=== PATIENT | female | born 1980 | race Caucasian/White ===

== ENCOUNTER 2019-09-18 15:24 | Emergency (ER) | payer OTHER ==
[~2019-09-18] VITALS: Ht 172.7 cm; Wt 79.4 kg
[2019-09-18] MEDS ORDERED: PREDNISONE 20 M20 M1 PO (16:30)
[2019-09-18 16:59] VITALS: BP 129/86
== END 2019-09-18 17:04 | disposition home or self-care (01) ==
LOC: ER 15:24
DX: J45.901 Unspecified asthma with (acute) exacerbation (principal); Z88.5 Allergy status to narcotic agent; Z88.8 Allergy status to other drugs, medicaments and biological substances

== ENCOUNTER 2019-10-03 19:29 | Emergency (ER) | payer OTHER ==
[~2019-10-03] VITALS: Ht 170.2 cm; Wt 80.3 kg
[~2019-10-03 19:29] MED LIST: PREDNISONE 20 M20 M1 PO
[2019-10-03] MEDS ORDERED: NORCO 5-325 TA1 EAC1 PO (20:55)
[2019-10-03 21:41] VITALS: BP 136/90
== END 2019-10-03 21:41 | disposition home or self-care (01) ==
LOC: ER 19:29
DX: S50.02XA Contusion of left elbow, initial encounter (principal); S70.01XA Contusion of right hip, initial encounter; J45.909 Unspecified asthma, uncomplicated; Z88.5 Allergy status to narcotic agent; Z88.1 Allergy status to other antibiotic agents; W00.0XXA Fall on same level due to ice and snow, initial encounter; Y92.89 Other specified places as the place of occurrence of the external cause; Y93.89 Activity, other specified; Y99.8 Other external cause status

== ENCOUNTER → 2019-10-05 | Outpatient (CLI) | payer OTHER ==
[~2019-10-05] MED LIST changes: +NORCO 5-325 TA1 EAC1 PO
== END ==
LOC: RAD 15:40
DX: M25.522 Pain in left elbow (principal)

== ENCOUNTER → 2019-10-16 | Outpatient (CLI) | payer OTHER | LOC: MRI 13:26 | DX: S49.92XS Unspecified injury of left shoulder and upper arm, sequela (principal); M25.522 Pain in left elbow; G56.22 Lesion of ulnar nerve, left upper limb; X58.XXXS Exposure to other specified factors, sequela ==

== ENCOUNTER 2020-05-08 11:36 | Inpatient (IN) | payer OTHER ==
[~2020-05-08] VITALS: Ht 170.2 cm; Wt 73.9 kg
[2020-05-08 11:42] VITALS: BP 133/87
[2020-05-08 11:50] LABS: URINE BILIRUBIN NEGATIVE (Negative); URINE BLOOD TRACE (Negative); URINE CLARITY CLEAR; URINE COLOR YELLOW; URINE GLUCOSE-RANDOM* NEGATIVE (Negative); URINE KETONES NEGATIVE (Negative); URINE NITRITE-REFLEX NEGATIVE (Negative); URINE PROTEIN (DIPSTICK) NEGATIVE (Negative); URINE SPECIFIC GRAVITY <= 1.005 (1.005-1.035); URINE UROBILINOGEN 0.2 E.U./dl (0.2-1.0)
[2020-05-08 11:54] LABS: URINE LEUKOCYTES-REFLEX 1+ (Negative)
[2020-05-08 12:08] LABS: BACTERIA-REFLEX 1-9 Few /HPF (None Seen); CASTS None Seen /LPF (None Seen); CRYSTALS None Seen /LPF (None Seen); SQUAMOUS 4-10 Moderate /LPF (0-3); URINE RBC None Seen /HPF (0-2); URINE WBC-REFLEX 0-5 Rare /HPF (0-5)
[2020-05-08 12:40] LABS: ABSOLUTE NEUTROPHILS 2.5 thou/uL (1.4-8.2); BASOPHILS 1.1 % (0.0-2.0); EOSINOPHILS 1.1 % (0.0-3.0); HEMATOCRIT 41.7 % (37.0-47.0); HEMOGLOBIN 13.6 gm/dL (12.0-15.0); MCH 29.1 pg (26.0-34.0); MCHC 32.7 g/dL (28.0-37.0); MCV 88.9 fL (80.0-100.0); MONOCYTES 8.5 % (1.0-8.0); PLATELET COUNT 209 thou/uL (150-400); POLYS 58.3 % (36.0-66.0); RBC 4.69 mil/uL (4.20-5.00); WBC 4.3 thou/uL (4.0-11.0)
[2020-05-08] MEDS ORDERED: PROTONIX40 M2 PO (12:46)
[2020-05-08] MEDS ORDERED: ALLEGRA ALLERG180 MG PO (12:46)
[2020-05-08] MEDS ORDERED: SINGULAIR 10 MG10 MG PO (12:47)
[2020-05-08] MEDS ORDERED: ASMANEX220 MC2 INH (12:48)
[2020-05-08] MEDS ORDERED: DULERA 200 MCG/13 GM INH (12:48)
[2020-05-08 12:49] LABS: CALCIUM 8.9 mg/dL (8.5-10.1); POTASSIUM 3.6 mmol/L (3.5-5.1)
[2020-05-08] MEDS ORDERED: AUVI-Q0.1 MG/0.1 INJECTION (12:50)
[2020-05-08] MEDS ORDERED: XOPENEX HFA15 GM INH (12:51)
[2020-05-08 12:55] LABS: ALBUMIN 3.7 g/dL (3.4-5.0); TOTAL BILIRUBIN 0.2 mg/dL (0.2-1.0); TOTAL PROTEIN 8.3 g/dL (6.4-8.2)
[2020-05-08] MEDS ORDERED: FLEXERIL PO (19:47)
[2020-05-08] MEDS ORDERED: OCTAGAM 10% VIA20 ML IV (19:48)
[2020-05-08] MEDS ORDERED: MELATONIN1 M2 PO (19:48)
[2020-05-08] MEDS ORDERED: SPIRONOLACTONE100 M1 PO (19:48)
[2020-05-08] MEDS ORDERED: PHENERGAN 25 MG25 M1 PO (19:49)
[2020-05-08] MEDS ORDERED: BUTALB-APAP-CA1 EACH PO (19:49)
[2020-05-08] MEDS ORDERED: ZOMIG5 MG PO (19:50)
[2020-05-08] MEDS ORDERED: AAA-MED REC COMPLETE (19:50)
[2020-05-08] MEDS ORDERED: ZOFRAN4 MG PO (19:50)
[2020-05-08 20:47] VITALS: BP 134/82
[2020-05-08 21:23] VITALS: BP 134/82
[2020-05-08 21:44] VITALS: BP 138/69
[2020-05-08 23:58] VITALS: BP 107/63
[2020-05-09 05:09] VITALS: BP 114/71
--- NOTE | 2020-05-09 07:28 | NUR ---
ADMITTED FROM ER UNDER 'S CARE. PT WAS SEEN BY IN ER. VSS. NO S/S ACUTE DISTRESS NOTED OR REPORTED AT THIS TIME. WILL CONT TO MONITOR FOR ANY CHANGES IN CONDITION.
[2020-05-09 08:03] VITALS: BP 120/82
[2020-05-09 14:48] VITALS: BP 118/77
--- NOTE | 2020-05-09 15:02 | NUR ---
PT ADMITTED RELATED TO ABD PAIN. CM REVIEWED CHART AND SPOKE WITH CARE TEAM. CM MET WITH PT AT BEDSIDE THIS DAY. PT IS A&O X4. CM ROLE INTRODUCED. PT INDICATED SHE LIVES IN A HOUSE WITH HER FAMILY WITH 3 STEPS TO ENTER AND NO STEPS SHE NEEDS TO USE INSIDE. 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 PT INDICATED PCP IS DR. NICHOLAS. PT INDICATED NO HH OR OP HX. PT INDICATED SHE PLANS TO RETURN HOME ONCE MEDICALLY STABLE. PT TO HAVE EGD IN THE AM. CM TO FOLLOW INDICATED WITH DC PLANNING.
--- NOTE | 2020-05-09 18:12 | NUR ---
RECEIVED PT'S CARE AROUND 0730; PT. ON BED; ALERT; DURING AM ASSESSMENT AOX4; C/O PAIN OVER ABDOMEN; 11/27; ST. NOT NEED PRN PAIN MEDICATION; AM MEDICATIONS GIVEN; EDUCATED ABOUT FALL PREVENTIONS; ST. UNDERSTANDING; NO C/O NAUSEA OR VOMITING AFTER BREAKFAST; REQUESTED PRN ANTI-NAUSEA MEDICATION & PAIN MEDICATION AFTER BREAKFAST; MEDICATION GIVEN; RE-ASSESSMENT PT. RESTING WITH EYES CLOSED; EDUCATED ABOUT NPO AT MIDNIGHT; ST. UNDERSTANDING; ASSESSMENT CHARGED; FOLLOWING POC; WILL PASS ON REPORT;
[2020-05-09 19:18] VITALS: BP 124/75
--- NOTE | 2020-05-10 02:52 | NUR ---
ASSUMED CARE OF PT AT 1900. PT IS A/O X4. PT DENIES ANY PAIN OR DISCOMFORT TO ABDOMEN. DISCONTINUED IV AND REPLACED IT. NPO SINCE MIDNIGHT AWAITING EGD AND ULTRASOUND IN THE AM. PT IS NOW IN HER BED AND APPEARS TO BE SLEEPING. CALL LIGHT IS WITHIN REACH. WILL CONTINUE TO MONITOR.
[2020-05-10 08:00] VITALS: BP 131/74
--- NOTE | 2020-05-10 12:23 | NUR ---
Assumed pt car at 7am.Pt in bed resting and c/o abdominal pain and nausea. Morphine and compazine ivp given as ordered with relief.Received call from gi lab and updates given.Dr Jeong here,order noted.Pt left for egd per cart at 1115.Will continue to monitor.
--- NOTE | 2020-05-10 16:38 | NUR ---
PT HAD EGD THIS DAY. PT IS TO HAVE NEW IV PACED THEN CTA. NO DC ANTICIPATED THIS DAY. PT WILL LIKELY BE ABLE TO DC HOME WITH NO NEEDS ONCE MEDICALLY STABLE. CM TO FOLLOW SHOULD ANY DC NEEDS ARISE.
[2020-05-10 17:00] VITALS: BP 147/84
[2020-05-10 17:22] LABS: CALCIUM 8.3 mg/dL (8.5-10.1); CREATININE 0.9 mg/dL (0.6-1.0); POTASSIUM 3.1 mmol/L (3.5-5.1)
[2020-05-10 19:24] VITALS: BP 145/76
[2020-05-11 03:17] VITALS: BP 119/74
--- NOTE | 2020-05-11 04:01 | NUR ---
PATIENT AOX4 MAKES NEEDS KNOWN. PATIENT HAD EMESIS X 2 THIS SHIFT. PAIN CONTROLLED THIS SHIFT.FALL PREACUTION IN PLACE. PATIENT IN BED ASLEEP AT THIS TIME BREATHING REGULAR AND UNLABOURED.
[2020-05-11 08:01] VITALS: BP 128/80
[2020-05-11 13:10] VITALS: BP 133/75
[2020-05-11] MEDS ORDERED: LEVAQUIN 750 M750 MG PO (15:36)
--- NOTE | 2020-05-11 16:30 | NUR ---
PT ASSESSED AT START OF SHIFT. NEW LLL PNEUMONIA AND STARTED ON LEVAQUIN. ABD PAIN AND NAUSEA BETTER AND DIET ADVANCED. INCREASING SLOWLY. TO F/U W/ GI IN 2 WEEKS. DISCHARGING AT THIS TIME W/ ALL BELONGINGS.
[2020-05-11 16:45] VITALS: BP 133/75
--- NOTE | 2020-05-13 18:06 | PATH ---
[facility] [place] [address] PATHOLOGY RPT PROCEDURE Name: SIMEONCIERRA Room #: 459-P DIS IN M.R.#: [id number] Admission: 05/08/20 Date of : 78 Discharge: 05/11/20 Report #: [id number] Path Case #: [id number] [facility] Accession Number: [id number] . 01 Material submitted: . 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 01 Clinical history: . None provided. . 02 Diagnosis: Small bowel mucosa, endoscopic biopsy: - No significant diagnostic abnormalities identified. - Negative for parasitic organisms or viral inclusions. - Negative for villous blunting or increase in intraepithelial lymphocytes. (IUV:krysta; 05/13/2020) QMS 05/13/2020 1722 Local . 02 Electronically signed: . Bel Julio MD, Pathologist NPI- [id number] . 01 Gross description: . Received in formalin labeled "Simeon Cierra, BX of small bowel history of CVID r/o IBD and celiac" is a 1.5 x 0.5 x 0.1 cm aggregate of blackburn-brown soft tissue fragments. The specimen is submitted entirely in A1. ([facility]; 05/12/2020) [facility] 05/12/2020 1248 Local . 02 Pathologist provided ICD-10: Z03.89 . 02 CPT . 494739 Specimen Comment: A courtesy copy of this report has been sent to [phone] Specimen Comment: [phone] Specimen Comment: Report sent to / DR HOU Performed at: [address], [place] [id number] MD eLs Sheehan MD Phone: [phone] Performed at: [address] [id number] MD Bel Julio MD Phone: [phone]
== END 2020-05-11 17:15 | disposition home or self-care (01) | DRG 871 ==
LOC: ER 11:36 → EROBS 16:48 → 4W 16:48
PROVIDERS: Physician Assistant; ADMIT Internal Medicine; ATTEND Internal Medicine
PROC: 0DB98ZX Excision of Duodenum, Via Natural or Artificial Opening Endoscopic, Diagnostic (ICD-10-PCS; principal; 2020-05-10)
DX: A41.9 Sepsis, unspecified organism (principal); J18.9 Pneumonia, unspecified organism; N39.0 Urinary tract infection, site not specified; D68.51 Activated protein C resistance; R10.12 Left upper quadrant pain; J45.909 Unspecified asthma, uncomplicated; K59.00 Constipation, unspecified; Z20.828 Contact with and (suspected) exposure to other viral communicable diseases; R68.81 Early satiety; G89.29 Other chronic pain; Z87.11 Personal history of peptic ulcer disease; Z88.6 Allergy status to analgesic agent; Z88.2 Allergy status to sulfonamides; Z88.8 Allergy status to other drugs, medicaments and biological substances; Z90.49 Acquired absence of other specified parts of digestive tract; R63.4 Abnormal weight loss; Z68.25 Body mass index [BMI] 25.0-25.9, adult
CPT/HCPCS: 10040; 62110; 62900; 70005

== ENCOUNTER 2020-08-03 15:29 | Emergency (ER) | payer OTHER ==
[~2020-08-03] VITALS: Ht 170.2 cm; Wt 72.6 kg
[~2020-08-03 15:29] MED LIST changes: +AAA-MED REC COMPLETE; +ALLEGRA ALLERG180 MG PO; +ASMANEX220 MC2 INH; +AUVI-Q0.1 MG/0.1 INJECTION; +BUTALB-APAP-CA1 EACH PO; +DULERA 200 MCG/13 GM INH; +FLEXERIL PO; +LEVAQUIN 750 M750 MG PO; +MELATONIN1 M2 PO; +OCTAGAM 10% VIA20 ML IV; +PHENERGAN 25 MG25 M1 PO; +PROTONIX40 M2 PO; +SINGULAIR 10 MG10 MG PO; +SPIRONOLACTONE100 M1 PO; +XOPENEX HFA15 GM INH; +ZOFRAN4 MG PO; +ZOMIG5 MG PO
[2020-08-03 16:20] LABS: HEMATOCRIT 41.2 % (37.0-47.0); HEMOGLOBIN 13.8 gm/dL (12.0-15.0); MCH 29.6 pg (26.0-34.0); MCHC 33.5 g/dL (28.0-37.0); MCV 88.3 fL (80.0-100.0); PLATELET COUNT 208 thou/uL (150-400); RBC 4.67 mil/uL (4.20-5.00); RDW 13.2 % (10.5-14.5); WBC 5.7 thou/uL (4.0-11.0)
[2020-08-03 16:28] LABS: CALCIUM 9.4 mg/dL (8.5-10.1); POTASSIUM 3.7 mmol/L (3.5-5.1)
[2020-08-03 16:29] LABS: URINE BILIRUBIN NEGATIVE (Negative); URINE BLOOD 2+ (Negative); URINE CLARITY CLEAR; URINE COLOR YELLOW; URINE GLUCOSE-RANDOM* NEGATIVE (Negative); URINE KETONES NEGATIVE (Negative); URINE LEUKOCYTES-REFLEX NEGATIVE (Negative); URINE NITRITE-REFLEX NEGATIVE (Negative); URINE PROTEIN (DIPSTICK) NEGATIVE (Negative); URINE UROBILINOGEN 0.2 E.U./dl (0.2-1.0)
[2020-08-03 16:34] LABS: ALBUMIN 3.8 g/dL (3.4-5.0); TOTAL BILIRUBIN 0.3 mg/dL (0.2-1.0); TOTAL PROTEIN 7.8 g/dL (6.4-8.2)
[2020-08-03 16:47] LABS: ABSOLUTE NEUTROPHILS 3.8 thou/uL (1.4-8.2)
[2020-08-03 16:49] LABS: CASTS None Seen /LPF (None Seen); CRYSTALS None Seen /LPF (None Seen); SQUAMOUS 0-3 Few /LPF (0-3); URINE WBC-REFLEX None Seen /HPF (0-5)
[2020-08-03 16:50] LABS: BACTERIA-REFLEX 1-9 Few /HPF (None Seen); URINE RBC 0-2 Rare /HPF (0-2)
[2020-08-03 17:30] VITALS: BP 137/89
== END 2020-08-03 17:31 | disposition home or self-care (01) ==
LOC: ER 15:29
PROVIDERS: Nurse Practitioner
DX: R53.81 Other malaise (principal); R50.9 Fever, unspecified; R11.0 Nausea; R42 Dizziness and giddiness; Z20.828 Contact with and (suspected) exposure to other viral communicable diseases; J02.9 Acute pharyngitis, unspecified; J45.909 Unspecified asthma, uncomplicated; G43.909 Migraine, unspecified, not intractable, without status migrainosus; Z79.899 Other long term (current) drug therapy; Z88.6 Allergy status to analgesic agent; Z88.8 Allergy status to other drugs, medicaments and biological substances

== ENCOUNTER → 2020-10-03 | Outpatient (CLI) | payer OTHER | LOC: LAB 08:29 | PROVIDERS: ATTEND Family Medicine | DX: Z20.828 Contact with and (suspected) exposure to other viral communicable diseases (principal) ==

== ENCOUNTER → 2020-10-04 | Outpatient (CLI) | payer OTHER | LOC: CAT 09:00 | PROVIDERS: ATTEND Family Medicine | DX: R05 Cough (principal); J18.9 Pneumonia, unspecified organism; J45.40 Moderate persistent asthma, uncomplicated; D80.6 Antibody deficiency with near-normal immunoglobulins or with hyperimmunoglobulinemia ==

== ENCOUNTER 2020-10-09 18:14 | Emergency (ER) | payer OTHER ==
[~2020-10-09] VITALS: Ht 165.1 cm; Wt 81.7 kg
[2020-10-09 18:50] LABS: ABSOLUTE NEUTROPHILS 5.8 thou/uL (1.4-8.2); BASOPHILS 0.8 % (0.0-2.0); EOSINOPHILS 0.9 % (0.0-3.0); HEMATOCRIT 40.4 % (37.0-47.0); HEMOGLOBIN 13.4 gm/dL (12.0-15.0); LYMPHOCYTES 20.4 % (24.0-44.0); MCH 28.9 pg (26.0-34.0); MCHC 33.1 g/dL (28.0-37.0); MCV 87.4 fL (80.0-100.0); MONOCYTES 7.7 % (1.0-8.0); PLATELET COUNT 224 thou/uL (150-400); POLYS 70.2 % (36.0-66.0); RBC 4.62 mil/uL (4.20-5.00); RDW 13.4 % (10.5-14.5); WBC 8.3 thou/uL (4.0-11.0)
[2020-10-09 18:59] LABS: ANION GAP 10 mmol/L (7-16); BUN 11 mg/dL (7-18); CALCIUM 9.4 mg/dL (8.5-10.1); CHLORIDE 104 mmol/L (98-107); CO2 25 mmol/L (21-32); CREATININE 0.9 mg/dL (0.6-1.0); GLUCOSE 112 mg/dL (74-106); POTASSIUM 3.8 mmol/L (3.5-5.1); SODIUM 139 mmol/L (136-145)
[2020-10-09 19:08] LABS: MAGNESIUM 2.1 mg/dL (1.8-2.4); TROPONIN-I <0.06 ng/mL (<0.06)
[2020-10-09 22:02] VITALS: BP 143/94
--- NOTE | 2020-10-10 07:20 | EKG ---
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 10/10/20 0720 1849 1849 Darryl Mcpherson MD, FACC /EPI
== END 2020-10-09 22:03 | disposition home or self-care (01) ==
LOC: ER 18:14
PROVIDERS: Nurse Practitioner
DX: R51.9 Headache, unspecified (principal); Z20.828 Contact with and (suspected) exposure to other viral communicable diseases; R06.00 Dyspnea, unspecified; J45.909 Unspecified asthma, uncomplicated; R49.0 Dysphonia; Z88.5 Allergy status to narcotic agent; Z88.6 Allergy status to analgesic agent; Z79.899 Other long term (current) drug therapy

== ENCOUNTER → 2020-10-22 | Outpatient (CLI) | payer OTHER | LOC: SJCVCIMAG 07:51 | PROVIDERS: ATTEND Internal Medicine | DX: R06.09 Other forms of dyspnea (principal); R07.89 Other chest pain; J45.909 Unspecified asthma, uncomplicated; Z87.891 Personal history of nicotine dependence ==